=== PATIENT | female | born 1985 | race Caucasian/White ===

== ENCOUNTER 2016-10-21 11:48 | Emergency (ER) | payer OTHER ==
[~2016-10-21] VITALS: Ht 165.1 cm; Wt 105.0 kg
[~2016-10-21 11:48] MED LIST: ACET-1256 PO; AMT10 PO; ASPI-390 PO; ESOM1CAP24 PO; PRED20TA PO; RIZA10TA18 PO; VERA1TAB52 PO; [UNRECOGNIZED DRUG - CODE] PO
[2016-10-21 11:50] VITALS: BP 130/80; TEMP 37.1; Ht 165.1 cm; Wt 105.0 kg
[2016-10-21] MEDS ORDERED: ALBU18002 INH (12:13)
[2016-10-21] MEDS ORDERED: AMT10 PO (12:14)
[2016-10-21] MEDS ORDERED: SULF800T23 PO (12:27)
[2016-10-21] MEDS ORDERED: CEPH500C2 PO (12:27)
[2016-10-21 12:40] VITALS: PULSE 85; O2SAT 99
--- NOTE | 2016-10-21 19:11 | EMERGENCY ROOM VISIT NOTE ---
ED Visit Note First contact with patient: 12:11 CHIEF COMPLAINT: I have an infected ingrown hair in my left arm pit. HISTORY OF PRESENT ILLNESS: Ms. White is an 31-year-old white female who ambulates into the ED accompanied by her mother complaining of a possible left axillary abscess. Patient reports she noticed a hard tender area in left axillary area 4 days ago. She reports she has been placing essential oils on the area and it has been slowly getting larger, more painful and tender. This morning she noted a pimple-like lesion on top of the area of redness and reports that her mother squeeze the area and expressed a large amount of pus like drainage. She reports since that time the area has been more tender and painful. Currently she describes her pain as a combination of burning and throbbing. She rates her discomfort 10/10. Her pain is nonradiating. Her pain worsens with palpation and when her inner upper arm rubs against the axillary area. She has not identified any alleviating factors related to the pain. She has not taken any medications for pain prior to arrival at the hospital. She denies any associated symptoms including fevers, chills, sweats, other skin eruptions, other skin color changes, upper respiratory tract symptoms, decreased appetite, arm weakness/numbness/tingling. REVIEW OF SYSTEMS: As noted above in History of Present Illness; 8 body systems were reviewed with the patient found to be negative unless noted above otherwise. PAST MEDICAL HISTORY: Asthma, bronchitis, migraine headaches, unspecified urinary history. CURRENT MEDICATION: Maxalt, Tylenol, midodrine Excedrin Migraine, control , prednisone, Nexium, verapamil, albuterol, amitriptyline. ALLERGIES TO MEDICATION: Patient denies. SOCIAL HISTORY: Patient is currently employed; she lives alone and feels safe in her home environment; she denies tobacco and alcohol use. PHYSICAL EXAM: Vital Signs: Date Time Temp Pulse Resp B/P Pulse Ox O2 Delivery O2 Flow Rate FiO2 10/21/16 12:40 85 18 99 Room Air 10/21/16 11:50 37.1 102 18 130/80 98 Room Air General: 31 year-old white female in mild stress due to pain, nontoxic appearing , afebrile and hemodynamically stable. Neurological: Awake, alert and oriented to person, place and time. Answering questions appropriately and following commands. Skin: Warm, dry and pink. Left Axillary Area: There is an indurated area on the lateral chest wall in the axillary area which measures about 1.7 cm in diameter. The areas indurated but not fluctuant. Currently there is no pointing or drainage. There is no lymphangitis. There is a zone of inflammation around it but no lymphangitis. Thorax: Lungs sounds are clear to auscultation and equal bilaterally with symmetrical chest wall movement. No wheezing, rales or rhonchi. No increased respiratory effort. Abdomen: Flat, soft and nontender. Positive bowel sounds in all quadrants. No guarding or rigidity. ED COURSE: Patient is assessed as noted above. Patient was educated about tonight's findings and instructed on her treatment plan; she verbalizes understanding and agreement with this plan. CLINICAL IMPRESSION: Abscess of the left axillary area. DISPOSITION: Patient discharged to home in stable condition accompanied by by her mother; prior to departure she was reassessed and subjectively reported she was pain-free. PLAN: Comfort measures were discussed with the patient including alternating ibuprofen and Tylenol and warm compresses. Patient was prescribed Keflex 500 mg 4 times a day and Bactrim DS 2 times a day for 10 days. Patient is to follow-up with PCP or return to the ED in 36-48 hours for recheck. Patient was encouraged return the ED sooner for worsening/uncontrolled pain, fevers, red streaking, puslike drainage or any new/concerning symptoms.
== END 2016-10-21 12:40 | disposition home or self-care (01) ==
LOC: C.EDB 11:50 → C.EDD 12:40
DX: L02.412 Cutaneous abscess of left axilla (principal); J45.909 Unspecified asthma, uncomplicated; Z79.3 Long term (current) use of hormonal contraceptives; Z79.899 Other long term (current) drug therapy

== ENCOUNTER → 2017-04-04 | Outpatient (CLI) | payer OTHER ==
[~2017-04-04] MED LIST changes: +ALBU18002 INH
== END | disposition home or self-care (01) ==
LOC: C.PAPS 08:54
PROVIDERS: ATTEND Obstetrics & Gynecology
DX: Z12.4 Encounter for screening for malignant neoplasm of cervix (principal); Z87.42 Personal history of other diseases of the female genital tract

== ENCOUNTER 2017-12-02 14:03 | Emergency (ER) | payer OTHER ==
[~2017-12-02] VITALS: Ht 165.1 cm; Wt 98.9 kg
[2017-12-02 14:10] VITALS: Ht 165.1 cm; Wt 98.9 kg
[2017-12-02] MEDS ORDERED: ALBUT/IPRATROP 3MG/0.5MG NEB 3 ML VIAL INH STA (14:30)
--- NOTE | 2017-12-02 14:40 | EMERGENCY ROOM VISIT NOTE ---
History Report prepared by Aubrey: Mk Thomson Under the Supervision of: Dr. Alvin Mendez M.D. First contact with patient: 14:21 Chief Complaint: PAIN (GENERALIZED) Stated Complaint: had umbilical surgery, bad cough and pain History of Present Illness The patient is a 32 year old female who presents to the Emergency Room with complaints of persistent, severe cough for the past 6 days. The patient notes that she had a herniorrhaphy performed 6 days ago, after which she developed a sore throat. She states that her sore throat has been worsening for the past several days and is now accompanied with ear pain/ ringing, a severe cough, and neck pain. She also notes feeling short of breath. The patient reports that her cough is non-productive. She denies any other medical problems, chance of , chest pain, smoking, drug allergies, blood clots, or any recent trauma or injury. 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 She denies being around any sick individuals recently. She reports a history of asthma and migraines and notes that she takes an oral contraceptive. Source of History: patient Onset: 6 days ago. Position: other (Global ) Symptom Intensity: severe Timing: constant, worsening Modifying Factors (Worsening): other (None ) Modifying Factors (Relieving): other (None ) Associated Symptoms: + sorethroat, + neck pain, + SOB, No chest pain Note: Associated Symptoms: Ear pain/ringing, Denies: trauma/injury. Review of Systems See HPI for pertinent positives & negatives. A total of 10 systems reviewed and were otherwise negative. 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 Nurse's notes were reviewed and I agree with. Family History FH: cancer FHx: heart disease Hypertension Social History Smoking Status: Never Smoker Alcohol Use: none Drug Use: none Marital Status: Housing Status: lives alone Occupation Status: employed Current/Historical Medications Scheduled Amitriptyline Hcl (Elavil), 40 MG PO HS Azithromycin (Zithromax Z-Tomy), 0 PO UD Control Pills ( Control Pills), 1 TAB PO DAILY Methylprednisolone (Medrol Dosepak), 0 PO DAILY Verapamil HCl (Verapamil HCl ER), 120 MG PO DAILY Scheduled PRN Acetaminophen (Tylenol), 1,000 MG PO Q6H PRN for Pain Albuterol Sulfate (Proair Respiclick), 12 PUFFS INH Q4H PRN for SOB/Wheezing Giwgjma-Sscopwfachsry-Wcbfbwco (Excedrin Migraine), 1 TAB PO Q8 PRN for Migraine Guaifenesin Ext Rel (Mucinex Ext Rel), 600 MG PO Q12 PRN for Congestion Oxycodone/Acetaminophen 5MG/325MG (Percocet 5MG/325MG), 1 TABLET PO Q6H PRN for Moderate Pain Rizatriptan Benzoate (Maxalt), 10 MG PO UD PRN for Migraine Allergies Coded Allergies: No Known Allergies (Unverified , 05/17/17) Physical Exam Vital Signs Date Time Temp Pulse Resp B/P (MAP) Pulse Ox O2 Delivery O2 Flow Rate FiO2 12/02/17 16:11 37.1 89 17 127/98 98 12/02/17 14:10 36.5 126 20 138/84 95 Room Air Physical Exam General: Non-ill appearing middle aged female in no acute distress. She is speaking and swallowing without difficulty. No hoarseness. HEENT: Normal cephalic atraumatic. Pupils are equal round and reactive to light. Extraocular movements are intact. Oropharynx is pink with moist mucous membranes. No swelling of the mouth lips or tongue. Neck: Supple with a midline trachea. No meningeal signs or stiffness, no JVD or bruits. No Stridor. Chest: Clear to auscultation bilaterally. No wheezes or rhonchi. No increased work of breathing. Heart: regular rate and rhythm. Abdomen: Soft nontender, nondistended without rebound guarding or rigidity. Extremities: No cyanosis clubbing or edema. No calf tenderness or assymetry Spine/Back. Non tender to palpation. No CVA tenderness Skin: Good turgor without rashes. Neurologic exam: Cranial nerves two through 12 are intact. Motor and sensation are intact and symmetrical throughout. Medical Decision & Procedures ER Provider Diagnostic Interpretation: Radiology results as stated below per my review and radiologist interpretation: CHEST ONE VIEW PORTABLE CLINICAL HISTORY: CHEST PAIN dyspnea COMPARISON STUDY: No previous studies for comparison. FINDINGS: The bones soft tissues and hemidiaphragms are normal. The cardiomediastinal silhouette is normal. The lungs are clear. The pulmonary vasculature is normal. IMPRESSION: Negative chest. The above report was generated using voice recognition software. It may contain grammatical, syntax or spelling errors. Electronically signed by: Gordy Gamez M.D. 12/02/2017 2:50 PM Dictated Date/Time: 12/02/2017 2:49 PM Laboratory Results 12/02/17 14:40 Red Blood Count 4.84, Mean Corpuscular Volume 84.7, Mean Corpuscular Hemoglobin 29.3, Mean Corpuscular Hemoglobin Concent 34.6, Mean Platelet Volume 9.9, Neutrophils (%) (Auto) 67.3, Lymphocytes (%) (Auto) 23.4, Monocytes (%) (Auto) 6.6, Eosinophils (%) (Auto) 2.2, Basophils (%) (Auto) 0.2, Neutrophils # (Auto) 9.82, Lymphocytes # (Auto) 3.42, Monocytes # (Auto) 0.96, Eosinophils # (Auto) 0.32, Basophils # (Auto) 0.03 12/02/17 14:40 Test 12/02/17 14:40 White Blood Count 14.60 K/uL (4.8-10.8) Red Blood Count 4.84 M/uL (4.2-5.4) Hemoglobin 14.2 g/dL (12.0-16.0) Hematocrit 41.0 % (37-47) Mean Corpuscular Volume 84.7 fL (80-100) Mean Corpuscular Hemoglobin 29.3 pg (25-34) Mean Corpuscular Hemoglobin Concent 34.6 g/dl (32-36) Platelet Count 305 K/uL (130-400) Mean Platelet Volume 9.9 fL (7.4-10.4) Neutrophils (%) (Auto) 67.3 % Lymphocytes (%) (Auto) 23.4 % Monocytes (%) (Auto) 6.6 % Eosinophils (%) (Auto) 2.2 % Basophils (%) (Auto) 0.2 % Neutrophils # (Auto) 9.82 K/uL (1.4-6.5) Lymphocytes # (Auto) 3.42 K/uL (1.2-3.4) Monocytes # (Auto) 0.96 K/uL (0.11-0.59) Eosinophils # (Auto) 0.32 K/uL (0-0.5) Basophils # (Auto) 0.03 K/uL (0-0.2) RDW Standard Deviation 41.2 fL (36.4-46.3) RDW Coefficient of Variation 13.2 % (11.5-14.5) Immature Granulocyte % (Auto) 0.3 % Immature Granulocyte # (Auto) 0.05 K/uL (0.00-0.02) D-Dimer 400 ug/L FEU (0-500) Anion Gap 8.0 mmol/L (3-11) Est Creatinine Clear Calc Drug Dose 79.1 ml/min Estimated GFR () 69.7 Estimated GFR (Non- 60.2 BUN/Creatinine Ratio 10.4 (10-20) Calcium Level 9.2 mg/dl (8.5-10.1) Total Bilirubin 0.5 mg/dl (0.2-1) Direct Bilirubin < 0.1 mg/dl (0-0.2) Aspartate Amino Transf (AST/SGOT) 12 U/L (15-37) Alanine Aminotransferase (ALT/SGPT) 23 U/L (12-78) Alkaline Phosphatase 134 U/L (45-117) Total Protein 7.8 gm/dl (6.4-8.2) Albumin 3.5 gm/dl (3.4-5.0) Lipase 109 U/L (73-393) Human Chorionic Gonadotropin, Qual NEG (NEG) Influenza Type A Antigen Neg for Influ A (NEG) Influenza Type B Antigen Neg for Influ B (NEG) Laboratory studies as stated above per my review. Medications Administered Medications (Trade) Dose Ordered Sig/Christianne Route Start Time Stop Time Status Last Admin Dose Admin Albuterol/ Ipratropium (Duoneb) 3 ml NOW STAT INH 12/02/17 14:30 12/02/17 14:34 DC 12/02/17 14:46 3 ML Prednisone (PredniSONE TAB) 60 mg NOW STAT PO 12/02/17 15:53 12/02/17 15:54 DC 12/02/17 16:01 60 MG Azithromycin (Zithromax Tab) 500 mg NOW ONCE PO 12/02/17 16:00 12/02/17 16:01 DC 12/02/17 16:01 500 MG Hydrocodone Bit/ Homatropine Methylb (Hycodan Elix Homepack 5/1.5MG/ 5ML) 1 homepack UD ONCE PO 12/02/17 16:00 12/02/17 16:01 DC 12/02/17 16:01 1 HOMEPACK ECG Per My Interpretation Rate (beats per minute): 99 Rhythm: normal sinus Findings: no acute ischemic change, no ectopy Comparison ECG Date: no prior available ED Course 1422: Past medical records reviewed. The patient was evaluated in room C9, and a complete history and physical examination were performed. 1430: Ordered DuoNeb 3ml INH. 1554: Upon reevaluation, the patient is resting comfortably. I discussed the results and treatment plan with her. She verbalized agreement of the treatment plan. The patient was discharged home. Medical Decision Differentials include, but are not limited to; Bronchitis, pneumonia, asthma, PE , cardiac disease, electrolyte or metabolic abnormality. This patient comes in as described above. She was placed in room C9. She is here for treatment and evaluation of a cough. She has surgery done on Sunday and the cough is making her abdomen hurt more. She has no redness or warmth incision appears intact. She has asthma which does not typically present with coughing she says. She was given a DuoNeb here. Her oropharynx is clear she has had a little bit of a postnasal drip and right ear pain she does have some fluid behind the right ear. Blood work was unremarkable. she has nothing to suggest cardiac disease chest x-ray was unremarkable. D-dimer was negative and in a low pretest probability setting, makes PE highly unlikely. She would like to go home. I told her to use an inhaler if needed I will start her on prednisone 60 mg p.o. here as well as a Medrol Dosepak to go home with her put on azithromycin Z-Tomy she was given additional dose 500 mg p.o. here if her cough she can use Hycodan syrup. She was warned this could make her drowsy do not take before drinking, driving, working. She should follow-up with her regular doctor 1 to 2 days for recheck return if: Worsening of symptoms, any new problems or concerns. Medication Reconcilliation Current Medication List: was personally reviewed by me Blood Pressure Screening Patient's blood pressure: Elevated blood pressure Blood pressure disposition: Elevated BP felt to be situational Impression Primary Impression: Cough Additional Impressions: Right acute otitis media URI (upper respiratory infection) Scribe Attestation The scribe's documentation has been prepared under my direction and personally reviewed by me in its entirety. I confirm that the note above accurately reflects all work, treatment, procedures, and medical decision making performed by me. Departure Information Dispostion Home / Self-Care Prescriptions Methylprednisolone (MEDROL DOSEPAK) 4 Mg Tomy 0 PO DAILY, #1 PKT Prov: Alvin Mendez M.D. 12/02/17 Azithromycin (ZITHROMAX Z-TOMY) 250 Mg Tab 0 PO UD, #1 PKT Prov: Alvin Mendez M.D. 12/02/17 Referrals No Doctor, Assigned (PCP) Forms HOME CARE DOCUMENTATION FORM, IMPORTANT VISIT INFORMATION, WORK / SCHOOL INSTRUCTIONS Patient Instructions My [facility] Additional Instructions Rest. Drink plenty of fluids Use azithromycin Z-Tomy as directedAntibiotic Medrol Dosepak as directedsteroid Use Hycodan syrup- 1-2 teaspoons every 6 hours as needed for cough Hycodan may make you drowsy do not take before drinking, driving, working and do not take with any other sedating medications Return if: Worsening of symptoms, increasing pain, fever or chills, any new problems or concerns Problem Qualifiers
[2017-12-02 14:49] LABS: BASO % 0.2 %; BASO ABS # 0.03 K/uL (0-0.2); EOS % 2.2 %; EOS ABS # 0.32 K/uL (0-0.5); HEMOGLOBIN 14.2 g/dL (12.0-16.0); IG# 0.05 K/uL (0.00-0.02); LYMPH % 23.4 %; LYMPH ABS # 3.42 K/uL (1.2-3.4); MEAN CELL VOLUME 84.7 fL (80-100); MEAN CORPUSCULAR HEMOGLOBIN 29.3 pg (25-34); MEAN CORPUSCULAR HGB CONC 34.6 g/dl (32-36); MEAN PLATELET VOLUME 9.9 fL (7.4-10.4); MONO % 6.6 %; MONO ABS # 0.96 K/uL (0.11-0.59); NEUT % 67.3 %; NEUT ABS # 9.82 K/uL (1.4-6.5); PLATELET COUNT 305 K/uL (130-400); RED CELL DISTRIBUTION WIDTH CV 13.2 % (11.5-14.5); RED CELL DISTRIBUTION WIDTH SD 41.2 fL (36.4-46.3)
--- NOTE | 2017-12-02 14:51 | DIAGNOSTIC IMAGING REPORT ---
CHEST ONE VIEW PORTABLE CLINICAL HISTORY: CHEST PAIN dyspnea COMPARISON STUDY: No previous studies for comparison. FINDINGS: The bones soft tissues and hemidiaphragms are normal. The cardiomediastinal silhouette is normal. The lungs are clear. The pulmonary vasculature is normal. IMPRESSION: Negative chest. The above report was generated using voice recognition software. It may contain grammatical, syntax or spelling errors. Electronically signed by: Gordy Gamez M.D. 12/02/2017 2:50 PM Dictated Date/Time: 12/02/2017 2:49 PM
[2017-12-02 15:06] LABS: ALBUMIN 3.5 gm/dl (3.4-5.0); ALT/SGPT 23 U/L (12-78); AST/SGOT 12 U/L (15-37); BLOOD UREA NITROGEN 13 mg/dl (7-18); CALCIUM 9.2 mg/dl (8.5-10.1); CARBON DIOXIDE 25 mmol/L (21-32); GLUCOSE 96 mg/dl (70-99); LIPASE 109 U/L (73-393); POTASSIUM 3.8 mmol/L (3.5-5.1); SODIUM 136 mmol/L (136-145)
[2017-12-02 15:09] LABS: ALKALINE PHOSPHATASE 134 U/L (45-117); TOTAL PROTEIN 7.8 gm/dl (6.4-8.2)
[2017-12-02 15:19] LABS: INFLUENZA B ANTIGEN Neg for Influ B (NEG)
[2017-12-02] MEDS ORDERED: AMIT10TA6 PO (15:46)
[2017-12-02] MEDS ORDERED: VERA120T65 PO (15:46)
[2017-12-02] MEDS ORDERED: OXYC-57 PO (15:46)
[2017-12-02] MEDS ORDERED: BCPILLS PO (15:46)
[2017-12-02] MEDS ORDERED: GUAI1TAB55 PO (15:48)
[2017-12-02] MEDS ORDERED: METH4PAK PO (15:57)
[2017-12-02] MEDS ORDERED: AZITTAB PO (15:57)
[2017-12-02] MEDS ORDERED: AZITHROMYCIN 250 MG TAB PO ONE (16:00)
[2017-12-02] MEDS ORDERED: HYCODAN 60ML BOTTLE HOMEPACK PO ONE (16:00)
[2017-12-02 16:11] VITALS: BP 127/98; PULSE 89; TEMP 37.1; O2SAT 98
== END 2017-12-02 16:13 | disposition home or self-care (01) ==
LOC: C.EDB 14:06 → C.EDC 16:13
DX: H66.91 Otitis media, unspecified, right ear (principal); J06.9 Acute upper respiratory infection, unspecified; Z98.890 Other specified postprocedural states; J45.909 Unspecified asthma, uncomplicated; Z79.3 Long term (current) use of hormonal contraceptives; F41.9 Anxiety disorder, unspecified; F32.9 Major depressive disorder, single episode, unspecified; Z80.9 Family history of malignant neoplasm, unspecified; Z82.49 Family history of ischemic heart disease and other diseases of the circulatory system; Z79.899 Other long term (current) drug therapy